=== PATIENT | female | born 2005 | race Caucasian/White ===

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

== ENCOUNTER 2025-03-18 11:18 | Outpatient (CLI) | payer OTHER, SELFPAY ==
[2025-03-18 11:37] LABS: HCT 39.2 % (36.0-46.0); HGB 12.8 g/dL (11.2-15.7); MCH 27.6 pg (27.0-33.0); MCHC 32.7 % (32.0-36.0); MCV 85 fL (80-95); MPV 8.8 fL (8.0-11.0); Platelet Count 314 10^3/uL (130-400); RBC 4.63 10^6/uL (3.93-5.22); RDW 14.1 % (11.7-14.6); RDW-SD 43.7 fL; WBC 8.52 10^3/uL (4.4-10.8)
[2025-03-18 12:00] LABS: Hemoglobin A1C 5.5 % (<5.7)
[2025-03-18 12:03] LABS: ALT 54 U/L (14-59); AST 28 U/L (15-37); Albumin 3.7 g/dL (3.4-5.0); Alkaline Phosphatase 92 U/L (46-116); Anion Gap 11.2 mmol/L (3-11); BUN 12 mg/dL (7-18); Bilirubin, Total 0.2 mg/dL (0.2-1.0); CO2 25.8 mmol/L (21.0-32.0); CREATININE 0.8 mg/dL (0.55-1.02); Calcium 9.1 mg/dL (8.5-10.1); Chloride 104 mmol/L (98-107); Estimated GFR 108.78 (mL/min/1.73m2); Glucose 99 mg/dL (74-106); Potassium 4.2 mmol/L (3.5-5.1); Sodium 141 mmol/L (136-145); Total Protein 7.8 g/dL (6.4-8.2)
== END 2025-03-18 11:19 | disposition home or self-care (01) ==
LOC: LBO 11:18
PROVIDERS: PCP Nurse Practitioner Family; Visit Provider Nurse Practitioner Family
DX: R63.1 Polydipsia (principal)
CPT/HCPCS: 36415; 80053; 85027; 83036

== ENCOUNTER 2025-08-09 12:32 | Outpatient (REF) | payer OTHER, SELFPAY | END 2025-08-09 12:33 | disposition home or self-care (01) | LOC: LBN 12:32 | PROVIDERS: PCP Student in an Organized Health Care Education/Training Program; Visit Provider Nurse Practitioner Family | DX: J02.9 Acute pharyngitis, unspecified (principal) | CPT/HCPCS: 87077; 87070 ==

== ENCOUNTER 2025-08-19 11:15 | Outpatient (REF) | payer OTHER, SELFPAY | END 2025-08-19 11:16 | disposition home or self-care (01) | LOC: LBN 11:15 | PROVIDERS: PCP Student in an Organized Health Care Education/Training Program; Referring Provider Pediatrics; Visit Provider Pediatrics | DX: J02.9 Acute pharyngitis, unspecified (principal) | CPT/HCPCS: 87081 ==